=== PATIENT | female | born 1990 | race Two or more races ===

== ENCOUNTER 2017-03-31 20:55 | Emergency (ER) | payer BC ==
[~2017-03-31] VITALS: Ht 162.6 cm; Wt 63.5 kg
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
[2017-03-31] MEDS ORDERED: ACETAMINOPHEN 325 MG TABLET PO ONE (21:30)
[2017-03-31] MEDS ORDERED: ACETAMINOPHEN 325 MG TABLET ONE (21:35)
--- NOTE | 2017-03-31 21:38 | NUR ---
XRAY AT BEDSIDE
--- NOTE | 2017-03-31 21:45 | NUR ---
PT SIGNED WAIVER
--- NOTE | 2017-03-31 21:52 | NUR ---
PT TO CT.
--- NOTE | 2017-03-31 22:10 | NUR ---
PT RETURNED FROM CT.
[2017-03-31] MEDS ORDERED: IBUPROFEN 600 MG TABLET PO ONE ×2 (22:56→23:00)
--- NOTE | 2017-03-31 23:13 | NUR ---
PT TO RADIOLOGY FOR PELVIS CT.
--- NOTE | 2017-03-31 23:26 | NUR ---
PT RETURNED FROM CT.
--- NOTE | 2017-04-01 00:35 | NUR ---
DR. SPAIN AT BEDSIDE SPEAKING TO PT REGARDING RESULTS.
--- NOTE | 2017-04-01 00:39 | NUR ---
Patient discharged to home in stable condition. Written and verbal after care instructions given. Patient verbalizes understanding of instruction. ambulatory with a steady gait
[2017-04-01 00:40] VITALS: BP 110/78
== END 2017-04-01 00:40 | disposition home or self-care (01) ==
LOC: ER 20:59
DX: S93.491A Sprain of other ligament of right ankle, initial encounter (principal); M25.551 Pain in right hip; R51 Headache; F10.129 Alcohol abuse with intoxication, unspecified; J45.909 Unspecified asthma, uncomplicated; Y04.0XXA Assault by unarmed brawl or fight, initial encounter; Y92.89 Other specified places as the place of occurrence of the external cause; Y93.89 Activity, other specified; Y99.8 Other external cause status
CPT/HCPCS: 70450; 72125; 72170; 72192; 73610; 73630; 99284; A4606; Z7610